=== PATIENT | female | born 1985 | race Hispanic/Latino ===

== ENCOUNTER 2016-05-10 15:57 | Emergency (ER) | payer BC, OTHER ==
[2016-05-10 16:27] VITALS: BMI 25.9
[2016-05-10 16:28] VITALS: BP 150/75; PULSE 117; RESP 18; TEMP 97.6; O2SAT 99
[2016-05-10] MEDS ORDERED: Naproxen 550 mg Tab PO STA (16:28)
--- NOTE | 2016-05-10 16:53 | ED PDOC ---
Arrival/HPI - General Chief Complaint: Lower Extremity Problem/Injury Time Seen by Provider: 05/10/16 16:18 Historian: Patient, Family - History of Present Illness Narrative History of Present Illness (Text): 05/10/16 16:48 Patient reports that she tripped and fell prior to arrival injuring her R knee, ankle and foot. Otherwise: (-) "pop", (-) instability, (-) other injury, (-) head injury, (-) LOC, (-) neck / back pain. Tdap UTD PMD [place] Past Medical History - Provider Review Nursing Documentation Reviewed: Yes - Infectious Disease Hx of Infectious Diseases: None - Tetanus Immunization Tetanus Immunization: Unknown - Past Medical History Past Medical History: No Previous - Cardiac Hx Cardiac Disorders: No - Pulmonary Hx Respiratory Disorders: No - Neurological Hx Neurological Disorder: No - HEENT Hx HEENT Disorder: No - Renal Hx Renal Disorder: No - Endocrine/Metabolic Hx Endocrine Disorders: No - Hematological/Oncological Hx Blood Disorders: No - Integumentary Hx Dermatological Disorder: Yes Other/Comment: bite fredo to left thumb and multiple scratches to left lower arm with swelling - Musculoskeletal/Rheumatological Hx Musculoskeletal Disorders: No - Gastrointestinal Hx Gastrointestinal Disorders: No - Genitourinary/Gynecological Hx Genitourinary Disorders: No - Psychiatric Hx Psychophysiologic Disorder: No Hx Anxiety: No Hx Bipolar Disorder: No Hx Depression: No Hx Emotional Abuse: No Hx Hallucinations: No Hx Panic Disorder: No Hx Post Traumatic Stress Disorder: No Hx Psychosis: No Hx Physical Abuse: No Hx Schizophrenia: No Hx Sexual Abuse: No Hx Substance Use: No (pt denies drug use when questioned) - Anesthesia Hx Anesthesia: No Hx Anesthesia Reactions: No Hx Malignant Hyperthermia: No - Suicidal Assessment Feels Threatened In Home Enviroment: No Family/Social History - Physician Review Nursing Documentation Reviewed: Yes Family/Social History: No Known Family HX Smoking Status: Light Smoker < 10 Cigarettes Daily Hx Alcohol Use: Yes (beer 4x's a week) Frequency of alcohol use: Socially Hx Substance Use: No (pt denies drug use when questioned) Substance used: COCAINE Hx Substance Use Treatment: No Allergies/Home Meds Allergies/Adverse Reactions: Allergies vancomycin Allergy (Verified 04/01/15 14:07) ITCHING Review of Systems - Review of Systems Constitutional: Normal. absent: Fatigue, Weight Change, Fevers Musculoskeletal: Normal, Arthralgias. absent: Back Pain, Neck Pain Skin: Normal. absent: Rash, Pruritis, Skin Lesions Neurological: Normal. absent: Headache, Dizziness Physical Exam - Physical Exam Narrative Physical Exam (Text): 05/10/16 16:54 GENERAL APPEARANCE: Patient is awake, alert, oriented x 3, in moderate painful distress. Strong odor of alcohol noted on patient's breath. SKIN: Warm, dry; (-) cyanosis. LOWER EXTREMITY: R Knee: (+) abrasion and ecchymosis noted to the anterior knee, (-) tenderness, (-) edema with (-) effusion. Able to extend actively to 0 degrees; (-) instability on valgus or varus stress. Drawer sign (-). (-) distal neurovascular deficit. 2 point discrimination. R Ankle: (-) swelling, (+) tenderness; (+) limited range of motion secondary to pain. Achilles tendon intact and nontender. R Foot: (-) swelling, (+) tenderness of the dorsal mid foot; (+) limited range of motion secondary to pain. R Hip, thigh, leg and ankle: (-) tenderness or limitation of motion. CARDIOVASCULAR: (+) distal pulse. NEUROLOGIC: (+) distal sensation. Vital Signs Temp Pulse Resp BP Pulse Ox 05/10/16 16:10 97.6 F 117 H 18 150/75 99 Medical Decision Making ED Course and Treatment: 05/10/16 16:57 30 yo F s/p trip and fall, injuring her R knee, ankle and foot. Plan: -- XR R knee / ankle / foot -- Naprosyn XR right knee: no fracture, no dislocation, as read by PA XR right ankle: no fracture, no dislocation, as read by PA XR right foot: no fracture, no dislocation, as read by PA Patient advised that official radiology read of XR is still pending and will call the patient if there is any discrepancy within 24 hours. Abrasions cleaned and dressed. Kam wrap applied to knee, ankle and foot. Patient instructed on crutch walking. Repeat pulse 105. Based on history, exam and diagnostic results plan will be for outpatient follow up. Prescription provided. Patient states she fully agrees with and understands discharge instructions. States that she agrees with the plan and disposition. Verbalized and repeated discharge instructions and plan. I have given the patient opportunity to ask any additional questions. Follow up with primary care physician in 1-2 days without fail. Advised to take medication as prescribed. Return to the emergency room at any time for any new or worsening symptoms. Patient left with family members, was observed ambulating without the use of her crutches with a normal gait. 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 Disposition/Present on Arrival - Present on Arrival Any Indicators Present on Arrival: No History of DVT/PE: No History of Uncontrolled Diabetes: No Urinary Catheter: No History of Decub. Ulcer: No History Surgical Site Infection Following: None - Disposition Have Diagnosis and Disposition been Completed?: Yes Diagnosis: Knee sprain, Ankle sprain Disposition: HOME/ ROUTINE Disposition Time: 17:37 Patient Plan: Discharge Condition: GOOD Discharge Instructions (ExitCare): Knee Sprain (ED), Ankle Sprain (ED) Print Language: MALAYSIAN Additional Instructions: Thank you for letting us take care of you today. You were treated for knee sprain, ankle sprain. The emergency medical care you received today was directed at your acute symptoms. If you were prescribed any medication, please fill it and take as directed. It may take several days for your symptoms to resolve. Return to the Emergency Department if your symptoms worsen, do not improve, or if you have any other problems. Please contact your doctor in 2 days for re-evaluation and follow up / or call one of the physicians/clinics you have been referred to that are listed on the Patient Visit Information form that is included in your discharge packet. Bring any paperwork you were given at discharge with you along with any medications you are taking to your follow up visit. Our treatment cannot replace ongoing medical care by a primary care provider (PCP) outside of the emergency department. Thank you for allowing the [facility] team to be part of your care today. Prescriptions: Naproxen 500 mg PO BID #30 tab Referrals: Bill Moise MD [Primary Care Provider] - Follow up with primary Forms: WORK NOTE
--- NOTE | 2016-05-10 17:36 | RAD ---
PROCEDURE: Right Knee Radiographs. HISTORY: COMPARISON: No prior. FINDINGS: BONES: No acute displaced fracture. JOINTS: No dislocation. JOINT EFFUSION: No significant joint effusion. OTHER FINDINGS: None. IMPRESSION: No acute displaced fracture, dislocation, or significant joint effusion identified. If symptoms persist, or if there is continued clinical concern, x-ray follow-up in 7-10 days should be considered.
--- NOTE | 2016-05-10 17:37 | RAD ---
PROCEDURE: Right Ankle Radiographs. HISTORY: pain COMPARISON: None available FINDINGS: BONES: No acute displaced fracture. JOINTS: No dislocation. Ankle mortise maintained. Talar dome intact SOFT TISSUES: Unremarkable. No evidence of radiopaque foreign body. OTHER FINDINGS: None. IMPRESSION: No acute displaced fracture, dislocation, or significant joint effusion identified. If symptoms persist or if there is clinical concern, x-ray follow-up in 7-10 days should be considered.
--- NOTE | 2016-05-10 17:38 | RAD ---
PROCEDURE: Right Foot Radiographs. HISTORY: pain COMPARISON: None available. FINDINGS: BONES: No acute displaced fracture. JOINTS: No dislocation. SOFT TISSUES: Unremarkable. No evidence of radiopaque foreign body. OTHER FINDINGS: None. IMPRESSION: No acute displaced fracture, dislocation, or significant joint effusion identified. If symptoms persist, or if there is continued clinical concern, x-ray follow-up in 7-10 days should be considered.
== END 2016-05-10 18:01 | disposition home or self-care (01) ==
LOC: ED 15:57
DX: S83.91XA Sprain of unspecified site of right knee, initial encounter (principal); S93.401A Sprain of unspecified ligament of right ankle, initial encounter; W01.0XXA Fall on same level from slipping, tripping and stumbling without subsequent striking against object, initial encounter

== ENCOUNTER 2017-08-27 23:35 | Emergency (ER) | payer BC ==
[2017-08-27 23:35] VITALS: BMI 25.9
[2017-08-27] MEDS ORDERED: Sodium Chloride 0.9% 1,000 ML IV STA (23:52)
--- NOTE | 2017-08-27 23:57 | ED PDOC ---
Arrival/HPI - General Historian: Patient - History of Present Illness Time/Duration: 4-6 hours Symptom Onset: Sudden Symptom Course: Worsening Activities at Onset: Rest Context: Home <Donna Andre - Last Filed: 08/28/17 03:13> <José Manuel Rosas DO - Last Filed: 08/28/17 05:47> - General Chief Complaint: Female Genitourinary Time Seen by Provider: 08/27/17 23:36 - History of Present Illness Narrative History of Present Illness (Text): This a is 32 year old female with no significant PMH presenting with painful vaginal bleeding that started a few hours ago. Patient was at home resting, and the pain started suddenly, and is currently a 10/10. She also vomited 4 times NBNB and currently feels nauseas. Patient used 4 pads today and saw bright red blood and clots. LMP was June 19. Patient had scheduled pelvic US yesterday, but does not know the results. Patient has never been and has no history of miscarriages. She had one previous . She currently does not take any medications. OBGYN doctor is Dr. Bermeo. She denies chest pain, SOB, headaches, and fevers. (Donna Andre) Past Medical History - Provider Review Nursing Documentation Reviewed: Yes - Infectious Disease Hx of Infectious Diseases: None - Tetanus Immunization Tetanus Immunization: Unknown - Past Medical History Past Medical History: No Previous - Cardiac Hx Cardiac Disorders: No - Pulmonary Hx Respiratory Disorders: No - Neurological Hx Neurological Disorder: No - HEENT Hx HEENT Disorder: No - Renal Hx Renal Disorder: No - Endocrine/Metabolic Hx Endocrine Disorders: No - Hematological/Oncological Hx Blood Disorders: No - Integumentary Hx Dermatological Disorder: Yes Other/Comment: bite fredo to left thumb and multiple scratches to left lower arm with swelling - Musculoskeletal/Rheumatological Hx Musculoskeletal Disorders: No - Gastrointestinal Hx Gastrointestinal Disorders: No - Genitourinary/Gynecological Hx Genitourinary Disorders: No - Psychiatric Hx Psychophysiologic Disorder: No Hx Anxiety: No Hx Bipolar Disorder: No Hx Depression: No Hx Emotional Abuse: No Hx Hallucinations: No Hx Panic Disorder: No Hx Post Traumatic Stress Disorder: No Hx Psychosis: No Hx Physical Abuse: No Hx Schizophrenia: No Hx Sexual Abuse: No Hx Substance Use: No (pt denies drug use when questioned) - Anesthesia Hx Anesthesia: No Hx Anesthesia Reactions: No Hx Malignant Hyperthermia: No - Suicidal Assessment Feels Threatened In Home Enviroment: No <Donna Andre - Last Filed: 08/28/17 03:13> Family/Social History - Physician Review Nursing Documentation Reviewed: Yes Family/Social History: Unknown Family HX Smoking Status: Light Smoker < 10 Cigarettes Daily Hx Alcohol Use: Yes (beer 4x's a week) Hx Substance Use: No (pt denies drug use when questioned) Substance used: COCAINE Hx Substance Use Treatment: No <Donna Andre - Last Filed: 08/28/17 03:13> Allergies/Home Meds <Donna Andre - Last Filed: 08/28/17 03:13> <José Manuel Rosas DO - Last Filed: 08/28/17 05:47> Allergies/Adverse Reactions: Allergies vancomycin Allergy (Verified 08/27/17 23:42) ITCHING Home Medications: Home Meds Medication Instructions Recorded Confirmed No Known Home Med 08/27/17 08/27/17 Review of Systems - Physician Review All systems were reviewed & negative as marked: Yes - Review of Systems Constitutional: absent: Fevers Eyes: Normal Respiratory: Normal. absent: SOB Cardiovascular: Normal. absent: Chest Pain, Palpitations Gastrointestinal: Nausea, Vomiting. absent: Hematemesis Genitourinary Female: Vaginal Bleeding, Vaginal Discharge Musculoskeletal: Normal Skin: Normal Neurological: Normal. absent: Headache, Dizziness Endocrine: Normal Hemo/Lymphatic: Normal Psychiatric: Normal <Donna Andre - Last Filed: 08/28/17 03:13> Physical Exam Vital Signs Reviewed: Yes Temperature: Afebrile Blood Pressure: Normal Pulse: Regular Respiratory Rate: Tachypneic Appearance: Positive for: Well-Appearing, Non-Toxic, Comfortable Pain Distress: None Mental Status: Positive for: Alert and Oriented X 3 - Systems Exam Head: Present: Atraumatic, Normocephalic Pupils: Present: PERRL Extroacular Muscles: Present: EOMI Conjunctiva: Present: Normal Mouth: Present: Moist Mucous Membranes Neck: Present: Normal Range of Motion Respiratory/Chest: Present: Clear to Auscultation, Good Air Exchange. No: Respiratory Distress, Accessory Muscle Use Cardiovascular: Present: Regular Rate and Rhythm, Normal S1, S2. No: Murmurs Abdomen: No: Tenderness, Distention, Peritoneal Signs Genitourinary/Pelvic Exam: Present: Other (deferred) Back: Present: Normal Inspection Upper Extremity: Present: Normal Inspection. No: Cyanosis, Edema Lower Extremity: Present: Normal Inspection. No: Edema Neurological: Present: Speech Normal, Motor Func Grossly Intact, Normal Sensory Function Skin: Present: Warm, Dry, Normal Color. No: Rashes Psychiatric: Present: Alert, Normal Insight, Normal Concentration <Donna Andre - Last Filed: 08/28/17 03:13> Vital Signs Temp Pulse Resp BP Pulse Ox 08/28/17 02:09 97.1 F L 84 17 105/72 98 08/28/17 00:20 128/78 08/27/17 23:42 97.5 F L 88 25 H 100 Medical Decision Making <Donna Andre - Last Filed: 08/28/17 03:13> <José Manuel Rosas DO - Last Filed: 08/28/17 05:47> ED Course and Treatment: 08/28/17 00:05 Impression: This is a 32 year old female with no significant PMH presenting with vaginal bleeding and vaginal pain that started earlier today. Plan: -CBC, CMP -B-HcG -Lipase, Mg -PT/PTT -U/A -Transvaginal US Progress: 08/28/17 00:57 Ultrasound shows no free fluid and mass is present in the cervix. 08/28/17 02:17 -Patient passed clot, and patient states pain is "100% better." -Patient is scheduled to see her Obgyn, Dr. Bermeo, on Wednesday. (Donna Andre) - Lab Interpretations Lab Results: 08/27/17 23:50 08/27/17 23:50 Lab Results 08/28/17 01:00: Urine Color Red, Urine Appearance Bloody, Urine pH 5.5, Ur Specific [place] >= 1.030, Urine Protein >=300 H, Urine Glucose (UA) Negative, Urine Ketones Trace H, Urine Blood Large H, Urine Nitrate Positive H, Urine Bilirubin Negative, Urine Urobilinogen 1.0 H, Ur Leukocyte Esterase Small H, Urine RBC Tntc, Urine WBC 25 - 30, Ur Epithelial Cells 3 - 4, Urine Bacteria Small 08/28/17 00:10: Blood Type A POSITIVE, Antibody Screen Negative, BBK History Checked Patient has bt 08/27/17 23:50: Beta HCG, Quant 5454.30 H 08/27/17 23:50: Sodium 139, Potassium 3.8, Chloride 103, Carbon Dioxide 20 L, Anion Gap 20, BUN 10, Creatinine 0.6 L, Est GFR ( Amer) > 60, Est GFR ( Non-Af Amer) > 60, Random Glucose 125 H, Calcium 10.1, Magnesium 1.8, Total Bilirubin 0.2, AST 27, ALT 29, Alkaline Phosphatase 77, Total Protein 7.8, Albumin 4.7, Globulin 3.1, Albumin/Globulin Ratio 1.5, Lipase 77 08/27/17 23:50: PT 10.7, INR 0.94, APTT 26.7 08/27/17 23:50: WBC 13.5 H D, RBC 4.19, Hgb 12.4, Hct 36.5, MCV 87.1, MCH 29.6, MCHC 34.0, RDW 13.8, Plt Count 230, MPV 10.4, Gran % 70.2 H, Lymph % (Auto) 22.0 , [place] % (Auto) 6.6 H, Eos % (Auto) 0.9 L, Baso % (Auto) 0.3, Gran # 9.51 H, Lymph # (Auto) 3.0, [place] # (Auto) 0.9 H, Eos # (Auto) 0.1, Baso # (Auto) 0.04 - RAD Interpretation Radiology Orders: 08/27/17 23:47 OB TRANSVAGINAL [US] Stat - Medication Orders Current Medication Orders: Discontinued Medications Acetaminophen (Tylenol 325mg Tab) 975 mg PO STAT STA Stop: 08/27/17 23:47 Last Admin: 08/28/17 00:21 Dose: 975 mg Sodium Chloride (Sodium Chloride 0.9%) 1,000 mls @ 999 mls/hr IV .Q1H1M STA Stop: 08/28/17 00:52 Last Admin: 08/28/17 00:21 Dose: 999 mls/hr eMAR Start Stop Document 08/28/17 00:21 IT (Rec: 08/28/17 00:21 IT [id number]) Intravenous Solution Start Date 08/28/17 Start Time 00:21 - 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 [facility] has examined the patient and agrees with the treatment plan. <Donna Andre - Last Filed: 08/28/17 03:13> Disposition/Present on Arrival - Present on Arrival Any Indicators Present on Arrival: No History of DVT/PE: No History of Uncontrolled Diabetes: No Urinary Catheter: No History of Decub. Ulcer: No History Surgical Site Infection Following: None - Disposition Have Diagnosis and Disposition been Completed?: Yes Disposition Time: 02:00 <Donna Andre - Last Filed: 08/28/17 03:13> - Disposition Disposition Time: 01:15 <José Manuel Rosas DO - Last Filed: 08/28/17 05:47> - Disposition Diagnosis: Vaginal bleeding during , Incomplete Disposition: HOME/ ROUTINE Condition: GOOD Discharge Instructions (ExitCare): Bleeding With (DC) Additional Instructions: JULIET MANTILLA, thank you for letting us take care of you today. The emergency medical care you received today was directed at your acute symptoms. If you were prescribed any medication, please fill it and take as directed. It may take several days for your symptoms to resolve. Return to the Emergency Department if your symptoms worsen, do not improve, or if you have any other problems. Please contact your doctor or call one of the physicians/clinics you have been referred to that are listed on the Patient Visit Information form that is included in your discharge packet. Bring any paperwork you were given at discharge with you along with any medications you are taking to your follow up visit. Our treatment cannot replace ongoing medical care by a primary care provider outside of the emergency department. Thank you for allowing the [facility] team to be part of your care today. 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 Referrals: Bill Moise MD [Primary Care Provider] - Follow up with primary Forms: YEVVO (Divehi)
[2017-08-28 00:15] LABS: ALB/GLOB RATIO 1.5 (1.1-1.8); ALBUMIN 4.7 g/dL (3.0-4.8); ALT/SGPT 29 U/L (7-56); AST/SGOT 27 U/L (14-36); BLOOD UREA NITROGEN 10 mg/dL (7-21); CALCIUM 10.1 mg/dL (8.4-10.5); GFR AFRICAN-AMERICAN > 60; GFR NON-AFRICAN AMERICAN > 60; LIPASE 77 U/L (23-300)
[2017-08-28 00:24] LABS: BASO # 0.04 K/mm3 (0.0-2.0); BASO % 0.3 % (0.0-3.0); EOS # 0.1 (0.0-0.7); EOS % 0.9 % (1.5-5.0); GRAN # 9.51 (1.4-6.5); GRAN % 70.2 % (50.0-68.0); HEMOGLOBIN 12.4 g/dL (12.0-16.0); MEAN CELL VOLUME 87.1 fl (80.0-105.0); MEAN CORPUSCULAR HEMOGLOBIN 29.6 pg (25.0-35.0); MEAN PLATELET VOLUME 10.4 fl (7.0-11.0); MONO # 0.9 (0.1-0.6); MONO % 6.6 % (1.0-6.0); RBC 4.19 10^6/uL (3.5-6.1); RED CELL DISTRIBUTION WIDTH 13.8 % (11.5-14.5); WHITE BLOOD COUNT 13.5 10^3/ul (4.5-11.0)
[2017-08-28 00:43] LABS: INR 0.94 (0.93-1.08); PROTHROMBIN TIME 10.7 SECONDS (9.4-12.5)
[2017-08-28 00:44] LABS: PARTIAL THROMBOPLASTIN TIME 26.7 Seconds (25.1-36.5)
[2017-08-28 01:40] LABS: PH,URINE 5.5 (4.7-8.0); URINE BILIRUBIN NEGATIVE (NEGATIVE); URINE BLOOD LARGE (NEGATIVE); URINE GLUCOSE (UA) NEGATIVE (NEGATIVE); URINE LEUKOCYTE ESTERASE SMALL Leu/uL (NEGATIVE); URINE PROTEIN >=300 mg/dL (<30 mg/dL)
[2017-08-28 01:41] LABS: URINE APPEARANCE BLOODY (CLEAR); URINE COLOR RED (YELLOW)
[2017-08-28 01:53] LABS: URINE RBC TNTC /hpf (0-2); URINE WBC 25 - 30 /hpf (0-6)
[2017-08-28 01:54] LABS: URINE BACTERIA SMALL (NEG)
[2017-08-28 02:10] VITALS: BP 105/72; PULSE 84; RESP 17; TEMP 97.1; O2SAT 98
--- NOTE | 2017-08-28 09:38 | US ---
HISTORY: Vaginal bleeding with . LMP 06/19/2017. COMPARISON: None available. TECHNIQUE: Standard protocol for this study/examination. FINDINGS: UTERUS: Measures 4.3 x 5.6 x 10.3 cm. Normal in size and appearance. No fibroid or other mass lesion seen. ENDOMETRIUM: Measures 12.7 mm in diameter. Thickened and heterogeneous endometrium. CERVIX: Fluid and debris identified in the cervical canal. RIGHT OVARY: Measures 1.9 x 2.3 x 2.2 cm. No solid mass. Normal flow. LEFT OVARY: Measures 1.4 x 2.9 x 1.9 cm. No solid mass. Flow could not be documented on the left likely related to inability of the patient to remain still foreign adequate Doppler assessment. FREE FLUID: No significant free fluid noted. OTHER FINDINGS: None. IMPRESSION: Fluid/ debris in the lower uterine canal and cervix. No visible products of conception noted. Concordant results (preliminary interpretation) provided by [facility]. Procedure Completed: 00:04 Preliminary ([facility]) Report: Dictated and Authenticated: 00:27 Final Interpretation: 09:36
== END 2017-08-28 02:09 | disposition home or self-care (01) ==
LOC: ED 23:35
DX: O03.4 Incomplete spontaneous abortion without complication (principal); O46.90 Antepartum hemorrhage, unspecified, unspecified trimester; F17.210 Nicotine dependence, cigarettes, uncomplicated
CPT/HCPCS: 76817; 80053; 81001; 83690; 83735; 84702; 85025; 85610; 85730; 86850; 86900; 87086; 88305; 99284; J2405; J7030